=== PATIENT | male | born 1980 | race Caucasian/White ===

== ENCOUNTER 2018-09-06 00:21 | Emergency (ER) | payer SELFPAY ==
[~2018-09-06] VITALS: Ht 172.7 cm; Wt 90.7 kg
[2018-09-06 00:27] VITALS: Ht 172.7 cm; Wt 90.7 kg
[2018-09-06 01:05] VITALS: BP 185/122
== END 2018-09-06 01:05 | disposition home or self-care (01) ==
LOC: ED 00:21
DX: R05 Cough (principal)

== ENCOUNTER 2019-07-29 07:49 | Emergency (ER) | payer SELFPAY ==
[~2019-07-29] VITALS: Ht 170.2 cm; Wt 135.2 kg
[2019-07-29 07:59] VITALS: Ht 170.2 cm; Wt 135.2 kg
[2019-07-29 08:32] LABS: BASOPHIL % 0.9 % (0-2); PLATELET COUNT 362 x10^3mcL (130-400)
[2019-07-29 08:50] LABS: ALBUMIN 4.1 g/dL (3.4-5.0); ALKALINE PHOSPHATASE 90 U/L (46-116); ALT/SGPT 86 U/L (16-63); AST/SGOT 56 U/L (15-37); BILIRUBIN TOTAL 0.7 mg/dL (0.20-1.00); CALCIUM 8.9 mg/dL (8.5-10.1); CARBON DIOXIDE 25.9 mmol/L (21-32); CHLORIDE SERUM 101 mmol/L (98-107); CREATININE SERUM 1.2 mg/dL (0.7-1.3); GFR1 > 60 mL/min; GLUCOSE SERUM 202 mg/dL (74-106); HDL CHOLESTEROL 36 mg/dL (40-60); PHOSPHOROUS 4.2 mg/dL (2.5-4.9); POTASSIUM SERUM 3.6 mmol/L (3.5-5.1); SODIUM SERUM 137 mmol/L (136-145); URIC ACID 8.5 mg/dL (3.5-7.2)
[2019-07-29 08:58] LABS: CHOLESTEROL 212 mg/dL (<200); TOTAL PROTEIN, SERUM 8.3 g/dL (6.4-8.2)
[2019-07-29 10:15] VITALS: BP 146/101
== END 2019-07-29 10:15 | disposition home or self-care (01) ==
LOC: ED 07:49
PROVIDERS: Emergency Medicine
DX: F41.9 Anxiety disorder, unspecified (principal); I16.0 Hypertensive urgency; J45.909 Unspecified asthma, uncomplicated; E66.01 Morbid (severe) obesity due to excess calories
CPT/HCPCS: 36415; 83880; Q0092